=== PATIENT | male | born 1990 | race Caucasian/White ===

== ENCOUNTER 2023-09-05 03:17 | Emergency (ER) | payer OTHER, SELFPAY ==
[2023-09-05 03:17] VITALS: BMI 26.0
[2023-09-05 03:19] VITALS: BP 161/104
[2023-09-05] MEDS: ULTRAM 50 MG PO (04:22)
--- NOTE | 2023-09-05 05:03 | ED.GENMED ---
History of Present Illness
General
Chief Complaint: Musculo-Skeletal Complaint
Source: patient
Exam Limitations: none
Time Seen by Provider: 09/05/23 03:40
Nursing documentation reviewed up to this point in time: agreed with
Travel History
Have you had any contact with someone who has COVID-19?: No
Do you have any symptoms of coronavirus? Fever > 100 degrees, chills, cough, shortness of breath, sore throat, loss of taste or smell, muscle aches, or headache?: No
History of Present Illness
History of Present Illness:
33-year-old male with no chronic medical issues presents to the emergency room for evaluation of left shoulder pain. Patient reports onset of some mild pain yesterday evening around 8 PM while resting on the couch. He says that he went to bed and
woke up around 11 PM with more severe pain he says 8/10 in severity. He says that the pain is located in the left posterior shoulder (he points towards his trapezius). He says it feels like a sharp pain and is constant. No radiation. Somewhat
worse with movement. No relieving factors noted�he did take 600 mg ibuprofen which did not improve her symptoms. He denies any associated falls or trauma or injury. He denies any associated neck pain. Denies any chest pain or shortness of
breath. He denies any weakness or numbness in his arms. He states he had similar symptoms once in the distant past that he was told was muscular.
Past History
Past History
ED Past Medical History: None
ED Past Surgical History: None
Patient has exhibited threatening behavior?: No
Social History
Tobacco: Non-smoker
Alcohol: None
Family History
Family History: Negative Diabetes or Early CAD
Review of Systems
Review of Systems
All Other Systems: ROS reviewed and negative except as documented in HPI and ROS
Constitutional: Denies fever
Respiratory: Denies cough or trouble breathing
Cardiac: Denies chest pain or palpitations
ABD/GI: Denies abdominal pain, nausea or vomiting
: Denies flank pain
Musculoskeletal: Reports other (Left shoulder pain); Denies neck pain or back pain
Neurological: Denies headache, weakness or numbness
Phy Exam
Physical Exam
Physical Exam:
General: Awake, alert, oriented x3; no acute distress
Head: Normocephalic, atraumatic
Eyes: Conjunctiva normal
Throat: Airway intact, handling secretions
Neck: Trachea midline, supple without meningismus
Lungs: Clear to auscultation bilaterally, no wheezing, rales, rhonchi
Heart: Regular rate and rhythm, no murmurs, gallops, or rubs
Abd: Soft, non distended, nontender
Neuro: Cranial nerves grossly intact, speech fluid; motor and sensory function is intact in the upper extremities
Skin: no rash
Extremities: No edema in extremities, equal pulses in all extremities�specifically strong left radial pulse; on exam the left shoulder he has full range of motion actively with minimal discomfort; he has reproducible point tenderness over the
lateral left trapezius just superior to the scapula; no rash or skin changes
Scores
Heart Failure Risk
Heart Failure Risk Score: Not Applicable
Heart Score for Chest Pain Patients
STEMI patient?: Not applicable
Withdrawal Assessment of Alcohol
Withdrawal Assessment Completed?: Not applicable
Course
Orders/Labs/Results
Orders:
Orders
09/05/23 03:59
Electrocardiogram (*1) Urgent
Reason for Study: Other
Other Reason for Exam: shoulder pain
EKG- Treatment ONCE
Tramadol HCl [Ultram] 50 mg PO NOW STA
CR Chest - 2 Views Urgent
Comment:
Reason For Exam: right shoulder/scapular pain
Vital Signs
Initial and Last Documented VS:
Initial Vital Signs
Temp Pulse Resp BP Pulse Ox
36.7 C 85 14 161/104 100
09/05/23 03:19 09/05/23 03:19 09/05/23 03:19 09/05/23 03:19 09/05/23 03:19
Last Documented Vital Signs
Temp Pulse Resp BP Pulse Ox
36.7 C 85 14 161/104 100
09/05/23 03:19 09/05/23 03:19 09/05/23 03:19 09/05/23 03:19 09/05/23 03:19
MDM/Problems Addressed
Differential Diagnosis Includes:
Cervical radiculopathy, muscle spasm/strain, pneumothorax somewhat less likely
MDM/Problems Addressed:
33-year-old male presents for evaluation of left shoulder/trapezius pain that started gradually last night and got worse after going to sleep. Did not improve with Motrin. Hypertensive but otherwise normal vitals. Exam as above. He is
reproducibly tender in the left posterior shoulder along the trapezius and superior to the scapula. Sent for chest x-ray which showed no pneumothorax on my independent review. Check an EKG in abundance of caution which was unremarkable. He was
treated symptomatically improved. Will discharge with pain control to follow-up with his primary doctor.
Acute Exacerbation and/or Progression of Chronic Illness:
Acutely hypertensive
Acute Exacerbation and/or Progression of Chronic Illness: HTN
*Radiology
Radiology exam reviewed: preliminary read by ED provider
*Pulse Oximetry
Patient hypoxic: no
*EKG
Interpreted by ED Provider?: Yes
Heart Rate: 87
Rate: normal
Rhythm: sinus
[place]: normal axis
Interval: normal interval
QRS Pattern: normal QRS
Ischemia: no ischemia
*Critical Care Note
Total Time (30-74mins, 75-104mins- exclusive of procedures): Not Applicable
Data Reviewed
Source: patient and records
ED Attending Note
-
Portions of this chart may have been created with voice recognition software.� Occasional wrong word or��sound alike� substitutions may have occurred due to the inherent limitations of voice recognition software.
Discharge Plan
Departure
Patient Disposition: Home (Routine Discharge)
Date of Disposition: 09/05/23
Time of Disposition: 05:10
Patient with high blood pressure during this ER visit?: Yes
Discharge Problem:
Left shoulder pain
Instructions: Shoulder Pain ED
Prescriptions:
New
tramadol 50 mg tablet
50 mg PO BID PRN (Reason: Pain) Qty: 10 0RF
No Action
fexofenadine [Jaclyn ODT] 30 MG tablet,disintegrating
30 mg PO DAILY
cyclobenzaprine 10 MG tablet
10 mg PO TIDPRN PRN (Reason: back spasm/muscle tightness.) Qty: 30 0RF
Referrals:
Allie Alfaro MD [Family Provider] - Call in 1-3 days for appt
Activity Restrictions/Additional Instructions:
Thank you for visiting the Emergency Department at [facility].
1. Please schedule a follow up appointment as directed. Call first thing tomorrow morning to make an appointment.
2. If indicated, please take your medications as instructed and indicated on discharge paperwork.
3. If any of your symptoms do not improve, or persist, or become more severe within 6-12 hours, please return to the emergency department for further care.
4. Please return to the emergency department if you develop a headache, neck pain/stiffness, fever greater than 100.4F, chest pain, shortness of breath, persistent nausea, vomiting, slurred speech, difficulty walking, numbness/tingling, weakness,
signs of infection or any other symptoms that are worrisome to you.
Please call [phone] if you have any questions.
Interventions
Interventions:
*Risk Screen - Suicide Last Done: 09/05/23 03:19
*General Assessment Last Done: 09/05/23 03:19
*Neglect/Abuse Screening Last Done: 09/05/23 03:19
ED-Musculoskeletal Assessment Last Done: 09/05/23 04:20
Discharge Date and Time
Print Language: DIVEHI
[2023-09-05 05:09] VITALS: BP 138/74
== END 2023-09-05 05:26 | disposition home or self-care (01) ==
LOC: EMR 03:17
PROVIDERS: EMERGENCY PHYSICIAN Emergency Medicine; FAMILY PHYSICIAN Internal Medicine
DX: M25.512 Pain in left shoulder (principal)
CPT/HCPCS: 99283; 71046; 93005